=== PATIENT | female | born 1990 | race American Indian/Alaskan Native ===

== ENCOUNTER 2019-03-07 16:58 | Outpatient (CLI) | payer MEDICAID ==
[2019-03-07 17:31] VITALS: BP 111/66
[2019-03-07] MEDS ORDERED: BUTALB/ACETAMINOPHEN/CAFFEINE TAB PO ONE (17:43)
--- NOTE | 2019-03-07 18:04 | Event Note ---
Date: 03/07/19 Pt sent from office to be evaluated for a "migraine x4 days." Patient initially refused to allow triage nurses to monitor her and she stated she just wanted an rx to take with her. She allowed the nurses to get FHT and a set of vital signs, VSSAF. Offered fioricet x 2 PO. pt has no one to drive her and her young daughter home. Advised we can not give her medication and the allow her to drive herself home. Discussed proper f/u with neurology. Patient states she started care at [facility] and they told her "she could have something stronger once she passed 14 weeks." Advised patient we do no give rx for narcotics in our office. Consult generated with [facility]. pt to call office Sunday for referral. pt opted to leave without medication.
== END 2019-03-07 18:04 | disposition home or self-care (01) ==
LOC: TRG 16:58 → EDBD 16:58 → TRG 17:00
PROVIDERS: ATTEND Obstetrics & Gynecology
DX: O47.02 False labor before 37 completed weeks of gestation, second trimester (principal); Z3A.21 21 weeks gestation of pregnancy